=== PATIENT | female | born 1975 | race Caucasian/White ===

== ENCOUNTER → 2019-08-27 | Outpatient (CLI) | payer BC | LOC: MC.RAD 13:55 | DX: N63.11 Unspecified lump in the right breast, upper outer quadrant (principal) ==

== ENCOUNTER 2019-10-11 06:22 | Day surgery (SDC) | payer BC ==
[~2019-10-11] VITALS: Ht 182.9 cm; Wt 75.9 kg
[2019-10-11 06:45] VITALS: BP 110/78; PULSE 81; TEMP 97.7
[2019-10-11] MEDS ORDERED: GLUCOSAMIN 500 PO (06:51)
[2019-10-11] MEDS ORDERED: DAILY MULTIPLE1 T18 PO (06:51)
[2019-10-11] MEDS ORDERED: NORCO 325 MG-51 TAB PO (09:06)
[2019-10-11 09:09] VITALS: BP 97/61; PULSE 57
--- NOTE | 2019-10-11 09:09 | NUR ---
Patient returns to room 8 per cart from surgery accompanied by Jennifer ESCOBAR and Rashard GLOVER. Patient is awake and alert. IV fluids infusing and site is free of redness. Denies pain or nausea. Siderails up x2 and allowed to rest.
[2019-10-11 09:24] VITALS: BP 96/62; PULSE 51
--- NOTE | 2019-10-11 09:24 | NUR ---
Resting with closed when not disturbed.
[2019-10-11 09:41] VITALS: BP 96/63; PULSE 50
--- NOTE | 2019-10-11 09:41 | NUR ---
Resting and continues to deny pain or nausea.
[2019-10-11 09:56] VITALS: BP 106/68; PULSE 48
--- NOTE | 2019-10-11 09:56 | NUR ---
Tolerated water. IV discontinued and site free of redness.
--- NOTE | 2019-10-11 10:01 | NUR ---
Assisted up to the bathroom and gait steady. Continues to deny pain or nausea.
--- NOTE | 2019-10-11 10:04 | NUR ---
Patient dresses self and awaits ride home. Eating applesauce.
--- NOTE | 2019-10-11 10:30 | NUR ---
Dismissal instructions given and voices understanding of these. Provided follow up date and time. Given office number for questions and concerns.
--- NOTE | 2019-10-11 10:34 | NUR ---
Patient dismissed to home driven by friend and taken to the front door per wheelchair and assisted into vehilce with instructions in hand by this RN.
== END 2019-10-11 10:34 | disposition home or self-care (01) ==
LOC: SDCO 06:22
DX: D24.1 Benign neoplasm of right breast (principal)
CPT/HCPCS: J0690; J2704; J3010; J7120

== ENCOUNTER → 2020-12-01 | Outpatient (CLI) | payer BC ==
[~2020-12-01] MED LIST: DAILY MULTIPLE1 T18 PO; GLUCOSAMIN 500 PO; NORCO 325 MG-51 TAB PO
== END ==
LOC: MC.RAD 12:46
DX: N63.10 Unspecified lump in the right breast, unspecified quadrant (principal)

== ENCOUNTER → 2020-12-15 | Outpatient (CLI) | payer BC | LOC: MC.RAD 09:47 | DX: N63.10 Unspecified lump in the right breast, unspecified quadrant (principal); R92.0 Mammographic microcalcification found on diagnostic imaging of breast ==